=== PATIENT | female | born 1935 | race Caucasian/White ===

== ENCOUNTER 2020-12-16 22:29 | Emergency (ER) | payer OTHER ==
[~2020-12-16] VITALS: Ht 152.4 cm; Wt 75.3 kg
[2020-12-16 22:36] VITALS: BP 198/93
--- NOTE | 2020-12-16 22:43 | NUR ---
PATIENT W/C ASSISTED TO BED #2
--- NOTE | 2020-12-16 23:26 | NUR ---
PATIENT ASSESSMENT COMPLETED BY KHUSHI, NO NURSING INTERVENTIONS REQUIRED AT THIS TIME.
--- NOTE | 2020-12-16 23:26 | NUR ---
Dr. Andrade examining patient.
[2020-12-16 23:36] VITALS: BP 180/78
--- NOTE | 2020-12-16 23:36 | NUR ---
Patient discharged with v/s stable per . Written and verbal after care instructions given and explained BY . Patient verbalized understanding. Ambulatory with steady gait. All questions addressed prior to discharge BY . Advised to follow up with PMD BY .
== END 2020-12-16 23:36 | disposition home or self-care (01) ==
LOC: MED 22:29
DX: R42 Dizziness and giddiness (principal); I10 Essential (primary) hypertension
CPT/HCPCS: 99281

== ENCOUNTER 2021-05-09 14:14 | Emergency (ER) | payer MEDICARE, OTHER ==
[~2021-05-09] VITALS: Ht 149.9 cm; Wt 71.7 kg
[2021-05-09 14:40] VITALS: BP 146/92
[2021-05-09] MEDS ORDERED: PRED20TA5 PO (15:20)
[2021-05-09] MEDS ORDERED: IBUP-2213 PO (15:23)
--- NOTE | 2021-05-09 15:50 | NUR ---
Patient discharged with v/s stable. Written and verbal after care instructions given and explained. Patient alert, oriented and verbalized understanding of instructions. Ambulatory with steady gait. All questions addressed prior to discharge. ID band removed. Patient advised to follow up with PMD. Rx of Prednisone and Ibuprofen given. Patient educated on indication of medication including possible reaction and side effects. Opportunity to ask questions provided and answered.
== END 2021-05-09 15:50 | disposition home or self-care (01) ==
LOC: MED 14:14
DX: R05.9 Cough, unspecified (principal); R11.10 Vomiting, unspecified; M79.10 Myalgia, unspecified site; J44.9 Chronic obstructive pulmonary disease, unspecified; I10 Essential (primary) hypertension; Z98.890 Other specified postprocedural states
CPT/HCPCS: 71045; 99283

== ENCOUNTER 2022-06-07 12:31 | Emergency (ER) | payer OTHER ==
[~2022-06-07] VITALS: Ht 152.4 cm; Wt 53.5 kg
[~2022-06-07 12:31] MED LIST: IBUP-2213 PO; PRED20TA5 PO
[2022-06-07 13:28] VITALS: BP 157/79
--- NOTE | 2022-06-07 13:30 | NUR ---
PT PRESENTS SELF TO ER WITH C/O LEFT EAR DRAINAGE WHEN SHE PUTS ON HER HEARING AID. PT IN LOBBY, AWAITING TO BE SEEN BY
[2022-06-07] MEDS ORDERED: OFLO5SOL27 LEFT EAR (14:41)
--- NOTE | 2022-06-07 14:55 | NUR ---
Patient discharged with v/s stable. Written and verbal after care instructions given and explained. Patient alert, oriented and verbalized understanding of instructions. Ambulatory with steady gait. All questions addressed prior to discharge. ID band removed. Patient advised to follow up with PMD. Rx of CIPRO DROPS given. Patient educated on indication of medication including possible reaction and side effects. Opportunity to ask questions provided and answered.
== END 2022-06-07 14:55 | disposition home or self-care (01) ==
LOC: MED 12:31
DX: H60.92 Unspecified otitis externa, left ear (principal)
CPT/HCPCS: 99283

== ENCOUNTER 2022-10-15 02:19 | Inpatient (IN) | payer OTHER ==
[~2022-10-15] VITALS: Ht 152.4 cm; Wt 70.8 kg
[~2022-10-15 02:19] MED LIST changes: +OFLO5SOL27 LEFT EAR
[2022-10-15 02:25] VITALS: BP 131/49
--- NOTE | 2022-10-15 02:28 | NUR ---
to lobby a/w bed ambulatory
--- NOTE | 2022-10-15 02:40 | NUR ---
PT TAKEN TO BED 2
--- NOTE | 2022-10-15 02:41 | NUR ---
Pt BIB WC from home c/o N/V xtoday. PMH HTN, HLD, hypothyroid. Denies CP, SOB.
[2022-10-15] MEDS ORDERED: ONDANSETRON 4 MG/2 ML VIAL IVP ONE (03:15)
[2022-10-15] MEDS ORDERED: MORPHINE SULFATE 4 MG/ML SYR IVP ONE (03:15)
[2022-10-15 03:28] LABS: BASOPHILS # (AUTO) 0.1 K/uL (0.00-0.22); BASOPHILS % (AUTO) 0.5 % (0.0-2.0); EOSINOPHILS # (AUTO) 0.1 K/uL (0-0.4); EOSINOPHILS % (AUTO) 0.7 % (0.0-4.0); HEMATOCRIT 44.3 % (36-48); HEMOGLOBIN 14.5 g/dL (12.0-16.0); LYMPHOCYTES # (AUTO) 1.7 K/uL (2.5-16.5); LYMPHOCYTES % (AUTO) 15.1 % (20.5-51.1); MEAN CORPUSCULAR HEMOGLOBIN 32 pg (27-31); MEAN CORPUSCULAR HGB CONC 33 g/dL (33-37); MEAN CORPUSCULAR VOLUME 96.7 fL (80-94); MONOCYTES # (AUTO) 0.5 K/uL (0.8-1.0); MONOCYTES % (AUTO) 4.1 % (1.7-9.3); NEUTROPHILS # (AUTO) 9.1 K/uL (1.8-7.7); NEUTROPHILS % (AUTO) 79.6 % (42.2-75.2); PLATELET COUNT (AUTO) 249 K/uL (140-450); RED BLOOD CELL COUNT(AUTO) 4.58 MIL/uL (4.20-5.40); RED CELL DISTRIBUTION WIDTH 13.7 % (11.6-13.7); WHITE BLOOD COUNT (AUTO) 11.4 K/uL (4.8-10.8)
[2022-10-15 03:50] LABS: ALBUMIN 4.1 g/dL (3.4-5.0); ANION GAP 13.4 (8-16); ASPARTATE AMINOTRANSFERASE 22 U/L (15-37); CARBON DIOXIDE 28.1 mmol/L (21-32); CHLORIDE 102 mmol/L (98-107); GLUCOSE 180 mg/dL (74-106); LIPASE 79 U/L (73-393); POTASSIUM 4.5 mmol/L (3.5-5.1); SODIUM SERUM 139 mmol/L (136-145); TOTAL BILIRUBIN 0.6 mg/dL (0.0-1.0); UREA NITROGEN, BLOOD 16 mg/dL (7-18)
--- NOTE | 2022-10-15 04:03 | NUR ---
[facility] TRANSPORT AT BEDSIDE
--- NOTE | 2022-10-15 04:08 | NUR ---
PT TAKEN BY [facility] TRANSPORT TO [facility] FOR IMAGING
--- NOTE | 2022-10-15 05:00 | NUR ---
PT RETURN FROM [facility] TO ER BED
[2022-10-15] MEDS ORDERED: KETOROLAC 15 MG/ML VIAL IVP ONE (07:00)
--- NOTE | 2022-10-15 07:19 | NUR ---
report given to Gab COLVIN
[2022-10-15] MEDS ORDERED: ONDANSETRON 4 MG/2 ML VIAL IVP PRN (08:30)
[2022-10-15] MEDS ORDERED: ACETAMINOPHEN 325 MG TAB PO PRN ×2 (08:30→08:35)
[2022-10-15] MEDS ORDERED: MAGNESIUM OXIDE 400 MG TAB PO PRN ×2 (08:30→08:35)
[2022-10-15] MEDS ORDERED: HYDROcodone/APAP 5/325 MG 1 TAB TAB PO PRN ×2 (08:30→08:35)
[2022-10-15] MEDS ORDERED: KCL 20 MEQ IN 100 mL PREMIX 200 ML IV PRN ×2 (08:30→08:35)
[2022-10-15] MEDS ORDERED: MORPHINE SULFATE 2 MG/ML SYR IVP PRN ×2 (08:30→08:35)
[2022-10-15] MEDS ORDERED: POTASSIUM CHLORIDE 10 MEQ TABER PO PRN ×2 (08:30→08:35)
[2022-10-15] MEDS ORDERED: MAG SULF 2000 MG/WATER PREMIX 50 ML IV PRN ×2 (08:30→08:35)
[2022-10-15] MEDS ORDERED: BUDE10.2 INH (09:26)
[2022-10-15] MEDS ORDERED: NIFE-184 PO (09:26)
[2022-10-15] MEDS ORDERED: IRBE300T47 PO (09:26)
[2022-10-15] MEDS ORDERED: METO-744 PO (09:26)
[2022-10-15] MEDS ORDERED: ASPI81CT33 PO (09:26)
[2022-10-15] MEDS ORDERED: ALBU90AE INH (09:26)
[2022-10-15] MEDS ORDERED: ALBU2.5V INH (09:26)
[2022-10-15] MEDS ORDERED: MIRA25TE PO (09:26)
[2022-10-15] MEDS ORDERED: OMEP-283 PO (09:26)
[2022-10-15] MEDS ORDERED: ATOR40TA PO (09:26)
[2022-10-15] MEDS ORDERED: MONT-72 PO (09:26)
[2022-10-15] MEDS ORDERED: CHOL200072 PO (09:26)
[2022-10-15] MEDS ORDERED: LEVO0.0214 PO (09:26)
[2022-10-15] MEDS: NACL 0.9% 1,000 ML IV SCH ×2 (10:15→22:48)
[2022-10-15 10:25] VITALS: BP 125/54
--- NOTE | 2022-10-15 10:25 | NUR ---
Patient will be admitted to care of DR. BRODERICK. Admited to [facility]. Will go to room 124A. Belongings list completed. Report to VINNIE COLVIN.
--- NOTE | 2022-10-15 10:30 | NUR ---
Patient's Plan of Care was discussed and reviewed with STOCK PARTS FABRICATOR: VINNIE MORENO
--- NOTE | 2022-10-15 10:30 | NUR ---
PATIENT ARRIVED TO [facility]. PT AOX4. ABLE TO VERBALIZE NEEDS. RESPIRATIONS EVEN AND UNLABORED ON RA. NO SOB NOTED. SKIN WARM AND DRY. SMALL SCABBING ON POSTERIOR RLE. IV ON L AC 20G INTACT AND PATENT, INFUSING NS@ 70 CC/HR. ORIENTED TO UNIT, ROOM, RESTROOM AND POLICIES. CALL LIGHT WITHIN REACH. ALL SAFETY PRECAUTIONS IN PLACE. VITAL SIGNS: TEMP 96.4, HR 63, BP 125/54, O2 SATURATING AT 95%.
--- NOTE | 2022-10-15 10:36 | NUR ---
CARE ENDORSED TO VINNIE COLVIN FOR MED SURG BED 124A. PT VSS. NAD NOTED. PT AMBULATED TO BED WITHOUT ASSISTANCE. ALL QUESTIONS ANSWERED. END OF CARE.
[2022-10-15 16:00] VITALS: BP 143/64
--- NOTE | 2022-10-15 19:30 | NUR ---
ENDORSED PT TO CYTOGENETICS TECHNOLOGIST NURSE FOR CONTINUITY OF CARE. PT IS STABLE.
--- NOTE | 2022-10-15 19:31 | NUR ---
RECD. RESTING IN BED, AWAKE, A/OX4. RESPIRATION EVEN AND UNLABORED. IV OF NS INFUSING AT 70 ML/HR, LEFT AC G20. AMBULATORY TO THE BR. NPO EXCEPT MEDS. CONVERSANT AND ABLE TO VERBALIZED NEEDS. DENIES PAIN 0/10.
[2022-10-15 20:00] VITALS: BP 110/65
--- NOTE | 2022-10-15 20:00 | NUR ---
Patient's Plan of Care was discussed and reviewed with MAGAZINE EDITOR: MELBA ONEAL
[2022-10-15] MEDS ORDERED: ATORVASTATIN 20 MG TAB PO SCH (21:00)
--- NOTE | 2022-10-15 21:01 | NUR ---
SCHEDULED MEDICATIONS ADMINISTERED. TOLERATED WELL.
--- NOTE | 2022-10-15 21:30 | NUR ---
CHANGED BEDDINGS. MENDEZ COMFORTABLE IN BED WITH PILLOWS FOR COMFORT AND WARM BLANKETS.
--- NOTE | 2022-10-16 | NUR ---
SLEEPING COMFORTABLY IN BED. RESPIRATION EVEN AND UNLABORED.
--- NOTE | 2022-10-16 02:00 | NUR ---
STILL SLEEPING COMFORTABLY IN BED.
[2022-10-16 04:00] VITALS: BP 125/52
--- NOTE | 2022-10-16 05:00 | NUR ---
AWAKE ON BED, IV INFILTRATED. WILL INSERT A NEW IV LINE.
[2022-10-16 05:42] LABS: BASOPHILS # (AUTO) 0.1 K/uL (0.00-0.22); BASOPHILS % (AUTO) 0.5 % (0.0-2.0); EOSINOPHILS # (AUTO) 0.2 K/uL (0-0.4); EOSINOPHILS % (AUTO) 1.3 % (0.0-4.0); HEMATOCRIT 41.7 % (36-48); HEMOGLOBIN 13.8 g/dL (12.0-16.0); LYMPHOCYTES # (AUTO) 1.9 K/uL (2.5-16.5); LYMPHOCYTES % (AUTO) 16.2 % (20.5-51.1); MEAN CORPUSCULAR HEMOGLOBIN 32 pg (27-31); MEAN CORPUSCULAR HGB CONC 33 g/dL (33-37); MEAN CORPUSCULAR VOLUME 96.6 fL (80-94); MONOCYTES # (AUTO) 0.6 K/uL (0.8-1.0); MONOCYTES % (AUTO) 5.2 % (1.7-9.3); NEUTROPHILS % (AUTO) 76.8 % (42.2-75.2); PLATELET COUNT (AUTO) 240 K/uL (140-450); RED BLOOD CELL COUNT(AUTO) 4.31 MIL/uL (4.20-5.40); WHITE BLOOD COUNT (AUTO) 11.7 K/uL (4.8-10.8)
--- NOTE | 2022-10-16 06:00 | NUR ---
CHECKED AGAIN IV LINE, FLUSHING WELL WITH GOOD BLOOD RETURN.
[2022-10-16 06:27] LABS: ALBUMIN 3.5 g/dL (3.4-5.0); ANION GAP 12.6 (8-16); ASPARTATE AMINOTRANSFERASE 22 U/L (15-37); CARBON DIOXIDE 26.8 mmol/L (21-32); CHLORIDE 105 mmol/L (98-107); GLUCOSE 125 mg/dL (74-106); MAGNESIUM 1.9 mg/dL (1.8-2.4); POTASSIUM 4.4 mmol/L (3.5-5.1); SODIUM SERUM 140 mmol/L (136-145); TOTAL BILIRUBIN 0.8 mg/dL (0.0-1.0); UREA NITROGEN, BLOOD 18 mg/dL (7-18)
[2022-10-16] MEDS ORDERED: LEVOTHYROXINE 0.025 MG TAB PO SCH (06:30)
--- NOTE | 2022-10-16 07:20 | NUR ---
CONDITION REMAIN STABLE. ENDORSED TO AM SHIFT NURSE FOR CONTINUITY OF CARE.
--- NOTE | 2022-10-16 07:20 | NUR ---
RECEIVED REPORT FROM NIGHTSHIFT NURSE MELBA FOR CONTINUITY OF CARE. PT IN STABLE CONDITION. NO SIGNS OF PAIN OR DISTRESS NOTED AT THIS TIME.
[2022-10-16 08:00] VITALS: BP 125/44
--- NOTE | 2022-10-16 08:37 | NUR ---
MEDICATED PRN TYLENOL FOR HEADACHE PAIN 5/10.
[2022-10-16] MEDS ORDERED: MONTELUKAST SODIUM 10 MG TAB PO SCH (09:00)
[2022-10-16] MEDS ORDERED: NIFEdipine 30 MG TABER PO SCH (09:00)
--- NOTE | 2022-10-16 09:04 | NUR ---
PATIENT HAS BEEN SCREENED AND CATEGORIZED MODERATE NUTRITION RISK. PATIENT WILL BE SEEN WITHIN 3-5 DAYS OF ADMISSION. REVIEWED BY [address]AGROS [address]ERT[address]
--- NOTE | 2022-10-16 09:10 | NUR ---
DR. BRODERICK IN TO SEE PT, PER DR. BRODERICK IF PT TOLERATES CLEAR LIQUID BREAKFAST AND FULL LIQUID LUNCH, POSSIBLE DISCHARGE BY EVENING TIME.
--- NOTE | 2022-10-16 10:30 | NUR ---
PT TOLERATED BREAKFAST WELL, NO COMPLAINTS OF ABDOMINAL PAIN.
[2022-10-16] MEDS: NACL 0.9% 1,000 ML IV SCH (13:51)
--- NOTE | 2022-10-16 14:00 | NUR ---
PT REPORTED HAVING BM, NO ABDOMINAL PAIN BUT SORENESS STATED BY PT.
--- NOTE | 2022-10-16 16:50 | NUR ---
DR. BRODERICK IN TO SEE PT, NEW ORDER FOR DISCHARGE PLACED.
[2022-10-16] MEDS ORDERED: DOCU-299 PO (16:52)
[2022-10-16] MEDS ORDERED: IBUP-2213 PO (16:52)
--- NOTE | 2022-10-16 16:53 | NUR ---
CALLED PT'S DAUGHTER FOR UPDATE ON DISCHARGE. PER DAUGHTER, SHE WILL ARRIVE TO PICKUP PT WITHIN THE HOUR.
[2022-10-16 17:06] VITALS: BP 132/55
--- NOTE | 2022-10-16 17:27 | NUR ---
MEDICATED PRN NORCO FOR ABDOMINAL PAIN.
--- NOTE | 2022-10-16 17:46 | NUR ---
PT'S DAUGHTER AT THE BEDSIDE TO PICKUP PT AND ASSIST IN SIGNING DISCHARGE PAPERWORK. IV REMOVED AND DRESSED, [facility]
== END 2022-10-16 17:45 | disposition home or self-care (01) | DRG 390 ==
LOC: MED 02:19 → MTU 08:32
PROVIDERS: ADMIT Internal Medicine; ATTEND Internal Medicine
DX: K56.600 Partial intestinal obstruction, unspecified as to cause (principal); I10 Essential (primary) hypertension; E78.5 Hyperlipidemia, unspecified; J44.9 Chronic obstructive pulmonary disease, unspecified; E03.9 Hypothyroidism, unspecified; Z20.822 Contact with and (suspected) exposure to COVID-19; Z79.1 Long term (current) use of non-steroidal anti-inflammatories (NSAID); Z79.899 Other long term (current) drug therapy; Z79.82 Long term (current) use of aspirin
CPT/HCPCS: 36415; 74250; 80053; 83690; 83735; 85025; 87081; 96374; 96375; 99285; J1644; J2270; J2405